=== PATIENT | male | born 1945 | race Caucasian/White ===

== ENCOUNTER 2020-01-23 16:56 | Inpatient (IN) | payer OTHER ==
[~2020-01-23] VITALS: Ht 182.9 cm; Wt 93.1 kg
[~2020-01-23 16:56] MED LIST: AMLODIPINE BESY10 MG PO; ASPIRIN325; COLACE100 MG PO; FLOMAX0.4 MG PO; HYDROCODON-ACE1 EAC7 PO; PRINIVIL20 MG PO; PROBIOTIC1 EAC1 PO; XARELTO15 MG PO
[2020-01-23 17:10] VITALS: BP 131/66
[2020-01-23 17:38] LABS: ABSOLUTE NEUTROPHILS 2.4 thou/uL (1.4-8.2); BASOPHILS 0.4 % (0.0-2.0); EOSINOPHILS 0.1 % (0.0-3.0); HEMATOCRIT 43.4 % (42.0-52.0); HEMOGLOBIN 14.5 gm/dL (14.0-18.0); LYMPHOCYTES 8.1 % (24.0-44.0); MCH 32.8 pg (26.0-34.0); MCHC 33.4 g/dL (28.0-37.0); MCV 98.1 fL (80.0-100.0); MONOCYTES 11.1 % (1.0-8.0); PLATELET COUNT 106 thou/uL (150-400); POLYS 80.3 % (36.0-66.0); RBC 4.42 mil/uL (4.50-6.00); RDW 14.2 % (10.5-14.5)
[2020-01-23 17:47] LABS: ANION GAP 13 mmol/L (7-16); BUN 20 mg/dL (7-18); CALCIUM 8.2 mg/dL (8.5-10.1); CHLORIDE 101 mmol/L (98-107); CO2 22 mmol/L (21-32); CREATININE 1.9 mg/dL (0.7-1.3); GLUCOSE 104 mg/dL (74-106); POTASSIUM 3.7 mmol/L (3.5-5.1); SODIUM 136 mmol/L (136-145)
[2020-01-23 17:56] LABS: ALBUMIN 3.3 g/dL (3.4-5.0); SGOT 78 U/L (15-37); SGPT 62 U/L (30-65); TOTAL BILIRUBIN 0.5 mg/dL (0.2-1.0); TOTAL PROTEIN 6.8 g/dL (6.4-8.2); TROPONIN-I <0.06 ng/mL (<0.06)
[2020-01-23 18:38] LABS: BE(vivo) -2.6 mmol/L (-2 to +3); HCO3 20.4 mmol/L (22.0-26.0); PCO2 30.9 mmHg (35.0-45.0); PO2 65.5 mmHg (80.0-100.0); pH 7.438 (7.360-7.450); sO2 93.8 % (92.0-98.0)
[2020-01-23] MEDS ORDERED: XARELTO10 MG PO (19:06)
[2020-01-23 19:19] LABS: URINE BLOOD NEGATIVE (Negative); URINE CLARITY CLEAR; URINE COLOR YELLOW; URINE GLUCOSE-RANDOM* NEGATIVE (Negative); URINE KETONES 2+ (Negative); URINE LEUKOCYTES-REFLEX NEGATIVE (Negative); URINE NITRITE-REFLEX NEGATIVE (Negative); URINE PROTEIN (DIPSTICK) 2+ (Negative); URINE SPECIFIC GRAVITY >= 1.030 (1.005-1.035)
[2020-01-23 19:20] LABS: ICTOTEST (BILI CONFIRMATORY) Negative (Negative); URINE BILIRUBIN NEGATIVE (Negative)
[2020-01-23 19:40] LABS: CRYSTALS None Seen /LPF (None Seen); HYALINE CASTS 0-3 Few /LPF (None Seen); SQUAMOUS None Seen /LPF (0-3); URINE RBC 0-2 Rare /HPF (0-2); URINE WBC-REFLEX 0-5 Rare /HPF (0-5)
[2020-01-23 19:41] LABS: BACTERIA-REFLEX 1-9 Few /HPF (None Seen)
[2020-01-23 20:30] VITALS: BP 122/75
[2020-01-23 20:55] VITALS: BP 140/80
[2020-01-23 21:10] VITALS: BP 142/81
[2020-01-24 04:12] VITALS: BP 140/85
[2020-01-24 06:17] LABS: MCHC 33.1 g/dL (28.0-37.0)
[2020-01-24 06:20] LABS: HEMATOCRIT 40.6 % (42.0-52.0); HEMOGLOBIN 13.4 gm/dL (14.0-18.0); MCH 32.9 pg (26.0-34.0); MCV 99.4 fL (80.0-100.0); RBC 4.09 mil/uL (4.50-6.00); RDW 13.8 % (10.5-14.5)
[2020-01-24 06:27] LABS: CHOLESTEROL 63 mg/dL (<200); HDL CHOLESTEROL 30 mg/dL (>40); LDL CHOLESTEROL 21 mg/dL (<100); TC:HDL 2.1 Ratio (Not establshd); TRIGLYCERIDE 61 mg/dL (<150); VLDL 12 mg/dL (<40)
[2020-01-24 06:34] LABS: WBC 1.8 thou/uL (4.0-11.0)
[2020-01-24 06:41] LABS: CREATININE 1.6 mg/dL (0.7-1.3); POTASSIUM 4.2 mmol/L (3.5-5.1)
[2020-01-24 06:56] LABS: SERUM ASSESSMENT Clear
[2020-01-24 08:00] VITALS: BP 168/90
--- NOTE | 2020-01-24 09:03 | EKG ---
[facility] [place] [address] ELECTROCARDIOGRAM REPORT Name: JADON HARGROVE Room #: 353-P ADM IN M.R.#: [id number] Admission: 01/23/20 Attend Phys: Edgardo Coley MD Discharge: Date of : 41 Report #: [id number] THIS REPORT FOR: cc: [place] - No family physician/PCP [place] - No family physician/PCP Sachin Ruvalcaba MD [facility] THIS REPORT FOR: //name// [facility] ED Test Date: 2020-01-23 Test Time: 17:12:13 Pat Name: JADON HARGROVE Department: Room: [facility] Gender: M Lgsw[facility] 1945 Requested By: Lakia Garcia Order Number: [id number] MD: Sachin Ruvalcaba Measurements Intervals [place] Rate: 102 P: 59 [place]: 134 QRS: -28 QRSD: 91 T: 61 QT: 339 QTc: 442 Interpretive Statements Sinus tachycardia Borderline left axis deviation Compared to ECG 08/20/2016 22:18:03 No significant change was found Electronically Signed On 01-24-2020 9:03:30 CDT by Sachin Ruvalcaba [email or web address] <ELECTRONICALLY SIGNED> By: Sachin Ruvalcaba MD, [facility] 01/24/20 0903 [id number] 171 Sachin Ruvalcaba MD, [facility] /EPI
[2020-01-24 11:23] VITALS: BP 140/90
[2020-01-24 15:20] VITALS: BP 151/87
[2020-01-24 19:24] VITALS: BP 120/78
[2020-01-25 04:53] VITALS: BP 113/55
[2020-01-25 06:11] LABS: ABSOLUTE NEUTROPHILS 4.9 thou/uL (1.4-8.2); BASOPHILS 0.1 % (0.0-2.0); EOSINOPHILS 0.1 % (0.0-3.0); HEMOGLOBIN 13.8 gm/dL (14.0-18.0); LYMPHOCYTES 7.2 % (24.0-44.0); MCH 33.2 pg (26.0-34.0); MCHC 33.6 g/dL (28.0-37.0); MONOCYTES 9.8 % (1.0-8.0); PLATELET COUNT 141 thou/uL (150-400); POLYS 82.8 % (36.0-66.0); RBC 4.14 mil/uL (4.50-6.00); RDW 14.3 % (10.5-14.5); WBC 5.9 thou/uL (4.0-11.0)
[2020-01-25 06:17] LABS: FIBRINOGEN 314.7 mg/dL (210-360); INR 1.1; PROTIME 11.3 Seconds (9.3-11.4)
[2020-01-25 06:30] LABS: CALCIUM 8.6 mg/dL (8.5-10.1); CREATININE 1.5 mg/dL (0.7-1.3); POTASSIUM 3.6 mmol/L (3.5-5.1); TOTAL BILIRUBIN 0.3 mg/dL (0.2-1.0); TOTAL PROTEIN 6.4 g/dL (6.4-8.2)
[2020-01-25 08:07] VITALS: BP 136/69
[2020-01-25 11:38] VITALS: BP 128/75
[2020-01-25 15:20] VITALS: BP 129/65
[2020-01-25 19:36] VITALS: BP 131/75
[2020-01-25 22:36] VITALS: BP 141/92; BP 144/102
[2020-01-26] VITALS (12 sets, daily range): BP systolic 124–160; BP diastolic 67–98
[2020-01-26 05:33] LABS: ABSOLUTE NEUTROPHILS 5.2 thou/uL (1.4-8.2); BASOPHILS 0.1 % (0.0-2.0); HEMOGLOBIN 13.4 gm/dL (14.0-18.0); LYMPHOCYTES 6.2 % (24.0-44.0); MCH 32.8 pg (26.0-34.0); MCHC 33.4 g/dL (28.0-37.0); MONOCYTES 7.3 % (1.0-8.0); PLATELET COUNT 167 thou/uL (150-400); POLYS 86.4 % (36.0-66.0); RBC 4.08 mil/uL (4.50-6.00); RDW 14.3 % (10.5-14.5)
[2020-01-26 08:19] LABS: CALCIUM 8.1 mg/dL (8.5-10.1); CREATININE 1.2 mg/dL (0.7-1.3); POTASSIUM 3.4 mmol/L (3.5-5.1)
[2020-01-26 09:34] LABS: BE(vivo) -2.5 mmol/L (-2 to +3); HCO3 20.1 mmol/L (22.0-26.0); PCO2 28.9 mmHg (35.0-45.0); PO2 68.6 mmHg (80.0-100.0); sO2 94.9 % (92.0-98.0)
[2020-01-26 17:29] LABS: BE(vivo) -3.5 mmol/L (-2 to +3); HCO3 19.3 mmol/L (22.0-26.0); PCO2 29.2 mmHg (35.0-45.0); PO2 59.8 mmHg (80.0-100.0); pH 7.439 (7.360-7.450); sO2 92.2 % (92.0-98.0)
[2020-01-27] VITALS (27 sets, daily range): BP systolic 131–180; BP diastolic 81–115
[2020-01-27 04:12] LABS: BE(vivo) -1.5 mmol/L (-2 to +3); HCO3 20.9 mmol/L (22.0-26.0); PCO2 29.7 mmHg (35.0-45.0); PO2 59.9 mmHg (80.0-100.0); pH 7.466 (7.360-7.450); sO2 92.7 % (92.0-98.0)
[2020-01-27 04:32] LABS: CALCIUM 8.2 mg/dL (8.5-10.1); CREATININE 1.1 mg/dL (0.7-1.3); POTASSIUM 3.3 mmol/L (3.5-5.1)
[2020-01-27 05:05] LABS: TSH 0.609 uIU/mL (0.358-3.740)
[2020-01-27 05:17] LABS: HEMATOCRIT 40.6 % (42.0-52.0); HEMOGLOBIN 13.7 gm/dL (14.0-18.0); MCH 32.9 pg (26.0-34.0); MCHC 33.7 g/dL (28.0-37.0); MCV 97.7 fL (80.0-100.0); RBC 4.15 mil/uL (4.50-6.00); RDW 14.2 % (10.5-14.5); WBC 4.8 thou/uL (4.0-11.0)
[2020-01-28] VITALS (46 sets, daily range): BP systolic 107–158; BP diastolic 69–119
[2020-01-28 06:17] LABS: CALCIUM 8.8 mg/dL (8.5-10.1); CREATININE 1.1 mg/dL (0.7-1.3); POTASSIUM 3.5 mmol/L (3.5-5.1)
[2020-01-29] VITALS (25 sets, daily range): BP systolic 122–159; BP diastolic 77–121
[2020-01-29 05:39] LABS: ALBUMIN 2.8 g/dL (3.4-5.0); DIRECT BILIRUBIN 0.1 mg/dL (<0.1-0.2); TOTAL BILIRUBIN 0.6 mg/dL (0.2-1.0); TOTAL PROTEIN 6.5 g/dL (6.4-8.2)
[2020-01-30] VITALS (19 sets, daily range): BP systolic 100–156; BP diastolic 65–86
[2020-01-30 08:23] LABS: CALCIUM 8.4 mg/dL (8.5-10.1); CREATININE 1.4 mg/dL (0.7-1.3); POTASSIUM 3.5 mmol/L (3.5-5.1)
[2020-01-31] VITALS (22 sets, daily range): BP systolic 101–143; BP diastolic 52–98
--- NOTE | 2020-01-31 03:59 | HC ---
[facility] [place] [address] CONSULTATION Name: JADON HARGROVE Room #: 240- ADM IN M.R.#: [id number] Admission: 01/23/20 Attend Phys: Kaz Moreno MD Discharge: Date of : 41 Report #: [id number] THIS REPORT FOR: cc: [place] - [place] family physician/PCP [place] - No family physician/PCP Julio Kerns MD ~ CC: Kaz MARTINO physician/PCP DATE OF SERVICE: 01/26/2020 HISTORY OF PRESENT ILLNESS: This is a 74-year-old male patient who was evaluated by me for abnormal CT scan of the head. This patient is a poor historian. His memory is not very good. Some of the history is from him and lot of the history is from the record. This patient was admitted with acute hypoxic respiratory failure secondary to COVID. He has a pretty eventful course while in the hospital. He has been noticed to be weak in a generalized fashion and when a CT scan was done that showed a large encephalomalacia. The patient says he never had any surgery on the head. 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 He does not tell me what kind of symptoms was associated with that. Therefore, it becomes very difficult to evaluate this patient further. Some of the records indicate that he has been weak for months. Now he tells me he is getting stronger. He does appear to clinically have a left facial palsy. 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 REVIEW OF SYSTEMS: Positive for COVID positive and he has a pretty significant and involved course during the hospitalization. He was hypoxic. He required supplemental oxygen. He does have a history of arthritis. He has a history of acoustic neuroma, which I suspect was removed, but he does not remember much about that. That was a relevant 14-point review of system I can get on him. PAST MEDICAL HISTORY: Positive for mini stroke according to him, but I am not sure what symptom he caused because he does not give any history. FAMILY HISTORY: Unavailable. SOCIAL HISTORY: He has a history of smoking. PHYSICAL EXAMINATION: Indicate that he is alert. He is responsive. He does have a reasonable speech, but his memory and fund of knowledge is very poor. He did not remember the month or the date for me. Cranial nerve examination: He does appear to have facial weakness. He does not know why he had that, but records indicate it was because of Del Rosario's palsy. He is weak in generalized fashion. He is weak in all 4 extremities to some extent. It is more so in the lower extremities than the upper extremities. He was able to do fairly well [facility] [address] [place] [address] CONSULTATION Name: JADON HARGROVE Room #: 240-P [facility] IN M.R.#: [id number] Admission: 01/23/20 Attend Phys: Kaz Moreno MD Discharge: Date of : 41 Report #: [id number] with the position sense in the lower extremities. Reflexes are tough to tell because he does not give a good effort and relaxes. I could not look at the fundus. He is still short of breath. His blood pressure is 150/83, respirations 20, pulse is 94, temperature is 97.5. LABORATORY DATA: His white count is 6. IMPRESSION: Pretty difficult to form in this patient. He has generalized weakness. I think the finding on the brain is incidental. His weakness appeared to be more prominent in the legs, but is present in generalized fashion. We will get an MRI done and I will follow up after the MRI and I will also discuss with you. Thank you very much for this referral and if you have any questions, please feel free to contact me. <ELECTRONICALLY SIGNED> By: Juloi Kerns MD 01/31/20 0359 [id number] Julio Kerns MD /nt
[2020-02-01] VITALS (22 sets, daily range): BP systolic 92–160; BP diastolic 61–115
[2020-02-02] VITALS (23 sets, daily range): BP systolic 99–137; BP diastolic 56–104
[2020-02-03] VITALS (17 sets, daily range): BP systolic 118–155; BP diastolic 67–95
[2020-02-03 04:47] LABS: CALCIUM 8.3 mg/dL (8.5-10.1); CREATININE 1.3 mg/dL (0.7-1.3); POTASSIUM 3.8 mmol/L (3.5-5.1)
[2020-02-03 04:51] LABS: HEMATOCRIT 39.7 % (42.0-52.0); MCHC 32.6 g/dL (28.0-37.0); MCV 98.3 fL (80.0-100.0); RBC 4.04 mil/uL (4.50-6.00); RDW 14.4 % (10.5-14.5); WBC 15.3 thou/uL (4.0-11.0)
[2020-02-03 08:10] LABS: BE(vivo) -0.1 mmol/L (-2 to +3); HCO3 22.9 mmol/L (22.0-26.0); PCO2 32.9 mmHg (35.0-45.0); sO2 90.3 % (92.0-98.0)
[2020-02-03 08:12] LABS: PO2 54.4 mmHg (80.0-100.0)
[2020-02-03 16:14] LABS: URINE BILIRUBIN NEGATIVE (Negative); URINE BLOOD NEGATIVE (Negative); URINE CLARITY CLOUDY; URINE COLOR YELLOW; URINE GLUCOSE-RANDOM* NEGATIVE (Negative); URINE KETONES NEGATIVE (Negative); URINE LEUKOCYTES-REFLEX 2+ (Negative); URINE NITRITE-REFLEX NEGATIVE (Negative); URINE PROTEIN (DIPSTICK) 1+ (Negative); URINE SPECIFIC GRAVITY 1.025 (1.005-1.035); URINE UROBILINOGEN 0.2 E.U./dl (0.2-1.0)
[2020-02-03 16:16] LABS: BACTERIA-REFLEX 1-9 Few /HPF (None Seen); CRYSTALS None Seen /LPF (None Seen); SQUAMOUS None Seen /LPF (0-3); URINE RBC None Seen /HPF (0-2); URINE WBC-REFLEX >25 Many /HPF (0-5)
[2020-02-03 21:05] LABS: BE(vivo) -3.8 mmol/L (-2 to +3); PCO2 48.4 mmHg (35.0-45.0); PO2 53.4 mmHg (80.0-100.0); pH 7.295 (7.360-7.450); sO2 83.9 % (92.0-98.0)
[2020-02-04] VITALS (34 sets, daily range): BP systolic 79–158; BP diastolic 46–80
[2020-02-04 08:19] LABS: HCO3 24.3 mmol/L (22.0-26.0); PCO2 42.8 mmHg (35.0-45.0); PO2 58.9 mmHg (80.0-100.0); pH 7.372 (7.360-7.450); sO2 89.8 % (92.0-98.0)
[2020-02-04 09:55] LABS: ABSOLUTE NEUTROPHILS 12.5 thou/uL (1.4-8.2); BASOPHILS 0.3 % (0.0-2.0); EOSINOPHILS 1.6 % (0.0-3.0); HEMOGLOBIN 12.4 gm/dL (14.0-18.0); LYMPHOCYTES 6.2 % (24.0-44.0); MCH 32.1 pg (26.0-34.0); MCHC 32.6 g/dL (28.0-37.0); MCV 98.5 fL (80.0-100.0); MONOCYTES 6.2 % (1.0-8.0); PLATELET COUNT 199 thou/uL (150-400); POLYS 85.7 % (36.0-66.0); RBC 3.86 mil/uL (4.50-6.00); RDW 14.6 % (10.5-14.5); WBC 14.6 thou/uL (4.0-11.0)
[2020-02-04 10:03] LABS: INR 1.1; PROTIME 11.2 Seconds (9.3-11.4)
[2020-02-04 10:08] LABS: FIBRINOGEN 866.2 mg/dL (210-360)
[2020-02-04 10:10] LABS: ALBUMIN 2.1 g/dL (3.4-5.0); CALCIUM 8.3 mg/dL (8.5-10.1); CREATININE 1.6 mg/dL (0.7-1.3); POTASSIUM 3.9 mmol/L (3.5-5.1); TOTAL PROTEIN 6.4 g/dL (6.4-8.2)
[2020-02-05] VITALS (36 sets, daily range): BP systolic 75–110; BP diastolic 48–66
[2020-02-05 04:32] LABS: BE(vivo) -3.2 mmol/L (-2 to +3); HCO3 23.8 mmol/L (22.0-26.0); PO2 57.3 mmHg (80.0-100.0); pH 7.287 (7.360-7.450); sO2 86.2 % (92.0-98.0)
[2020-02-06] VITALS (53 sets, daily range): BP systolic 83–230; BP diastolic 47–118
[2020-02-06 03:33] LABS: HCO3 23.3 mmol/L (22.0-26.0); PCO2 64.2 mmHg (35.0-45.0); PO2 62.5 mmHg (80.0-100.0); sO2 85.3 % (92.0-98.0)
[2020-02-06 03:35] LABS: pH 7.178 (7.360-7.450)
[2020-02-06 05:38] LABS: ABSOLUTE NEUTROPHILS 9.3 thou/uL (1.4-8.2); BASOPHILS 0.6 % (0.0-2.0); HEMATOCRIT 34.8 % (42.0-52.0); HEMOGLOBIN 11.4 gm/dL (14.0-18.0); LYMPHOCYTES 4.8 % (24.0-44.0); MCH 32.6 pg (26.0-34.0); MCHC 32.6 g/dL (28.0-37.0); MCV 99.9 fL (80.0-100.0); MONOCYTES 3.2 % (1.0-8.0); PLATELET COUNT 146 thou/uL (150-400); POLYS 90.4 % (36.0-66.0); RBC 3.48 mil/uL (4.50-6.00); RDW 14.5 % (10.5-14.5); WBC 10.3 thou/uL (4.0-11.0)
[2020-02-06 05:52] LABS: ALBUMIN 1.3 g/dL (3.4-5.0); CALCIUM 7.9 mg/dL (8.5-10.1); CREATININE 1.7 mg/dL (0.7-1.3); POTASSIUM 4.5 mmol/L (3.5-5.1); TOTAL BILIRUBIN 0.6 mg/dL (0.2-1.0); TOTAL PROTEIN 5.7 g/dL (6.4-8.2)
[2020-02-06 08:28] LABS: BE(vivo) -5.5 mmol/L (-2 to +3); HCO3 22.9 mmol/L (22.0-26.0); PCO2 58.1 mmHg (35.0-45.0); PO2 56.7 mmHg (80.0-100.0); sO2 82.9 % (92.0-98.0)
[2020-02-06 08:29] LABS: pH 7.214 (7.360-7.450)
[2020-02-06 11:43] LABS: BE(vivo) -6.9 mmol/L (-2 to +3); HCO3 20.9 mmol/L (22.0-26.0); sO2 85.7 % (92.0-98.0)
[2020-02-06 11:45] LABS: pH 7.222 (7.360-7.450)
[2020-02-07] VITALS (97 sets, daily range): BP systolic 87–153; BP diastolic 45–85
[2020-02-07 04:34] LABS: BE(vivo) -6.4 mmol/L (-2 to +3); HCO3 21.4 mmol/L (22.0-26.0); PO2 69.2 mmHg (80.0-100.0); pH 7.224 (7.360-7.450); sO2 90.2 % (92.0-98.0)
[2020-02-07 05:39] LABS: ABSOLUTE NEUTROPHILS 7.7 thou/uL (1.4-8.2); BASOPHILS 0.1 % (0.0-2.0); HEMATOCRIT 32.3 % (42.0-52.0); HEMOGLOBIN 10.5 gm/dL (14.0-18.0); LYMPHOCYTES 2.2 % (24.0-44.0); MCH 32.1 pg (26.0-34.0); MCHC 32.6 g/dL (28.0-37.0); MCV 98.8 fL (80.0-100.0); MONOCYTES 1.9 % (1.0-8.0); PLATELET COUNT 126 thou/uL (150-400); POLYS 95.8 % (36.0-66.0); RBC 3.27 mil/uL (4.50-6.00); RDW 14.3 % (10.5-14.5)
[2020-02-07 06:26] LABS: ALBUMIN 1.3 g/dL (3.4-5.0); CALCIUM 7.9 mg/dL (8.5-10.1); CREATININE 2.1 mg/dL (0.7-1.3); MAGNESIUM 2.5 mg/dL (1.8-2.4); POTASSIUM 4.5 mmol/L (3.5-5.1); TOTAL BILIRUBIN 0.3 mg/dL (0.2-1.0); TOTAL PROTEIN 5.6 g/dL (6.4-8.2)
[2020-02-07 20:33] LABS: HCO3 25.5 mmol/L (22.0-26.0); PCO2 62.2 mmHg (35.0-45.0); PO2 76.1 mmHg (80.0-100.0); sO2 92.4 % (92.0-98.0)
[2020-02-07 20:34] LABS: pH 7.231 (7.360-7.450)
[2020-02-08] VITALS (106 sets, daily range): BP systolic 93–203; BP diastolic 54–119
[2020-02-08 04:11] LABS: BE(vivo) 0.4 mmol/L (-2 to +3); HCO3 28.5 mmol/L (22.0-26.0); PCO2 64.4 mmHg (35.0-45.0); PO2 88.8 mmHg (80.0-100.0); sO2 95.3 % (92.0-98.0)
[2020-02-08 04:12] LABS: pH 7.264 (7.360-7.450)
[2020-02-08 06:53] LABS: ABSOLUTE NEUTROPHILS 7.7 thou/uL (1.4-8.2); BASOPHILS 0.2 % (0.0-2.0); HEMATOCRIT 30.3 % (42.0-52.0); HEMOGLOBIN 10.1 gm/dL (14.0-18.0); LYMPHOCYTES 4.2 % (24.0-44.0); MCH 32.8 pg (26.0-34.0); MCHC 33.5 g/dL (28.0-37.0); MONOCYTES 6.9 % (1.0-8.0); PLATELET COUNT 152 thou/uL (150-400); POLYS 88.7 % (36.0-66.0); RBC 3.09 mil/uL (4.50-6.00); RDW 14.4 % (10.5-14.5); WBC 8.7 thou/uL (4.0-11.0)
[2020-02-08 07:08] LABS: ALBUMIN 1.8 g/dL (3.4-5.0); CALCIUM 7.9 mg/dL (8.5-10.1); CREATININE 2.7 mg/dL (0.7-1.3); POTASSIUM 4.5 mmol/L (3.5-5.1); TOTAL BILIRUBIN 0.3 mg/dL (0.2-1.0); TOTAL PROTEIN 5.6 g/dL (6.4-8.2)
[2020-02-08 20:06] LABS: BE(vivo) 1.6 mmol/L (-2 to +3); PCO2 57.9 mmHg (35.0-45.0); PO2 80.6 mmHg (80.0-100.0); sO2 94.8 % (92.0-98.0)
[2020-02-08 20:12] LABS: pH 7.317 (7.360-7.450)
[2020-02-08 20:31] LABS: ABSOLUTE NEUTROPHILS 9.1 thou/uL (1.4-8.2); BASOPHILS 0.7 % (0.0-2.0); HEMATOCRIT 31.7 % (42.0-52.0); HEMOGLOBIN 10.9 gm/dL (14.0-18.0); LYMPHOCYTES 2.1 % (24.0-44.0); MCH 33.2 pg (26.0-34.0); MCHC 34.4 g/dL (28.0-37.0); MCV 96.4 fL (80.0-100.0); MONOCYTES 6.5 % (1.0-8.0); PLATELET COUNT 157 thou/uL (150-400); POLYS 90.7 % (36.0-66.0); RBC 3.29 mil/uL (4.50-6.00); RDW 14.5 % (10.5-14.5)
[2020-02-08 20:46] LABS: ALBUMIN 1.8 g/dL (3.4-5.0); CREATININE 2.6 mg/dL (0.7-1.3); POTASSIUM 4.5 mmol/L (3.5-5.1); TOTAL BILIRUBIN 0.3 mg/dL (0.2-1.0); TOTAL PROTEIN 5.8 g/dL (6.4-8.2)
[2020-02-09] VITALS (96 sets, daily range): BP systolic 85–197; BP diastolic 36–105
[2020-02-09 09:01] LABS: BE(vivo) 1.3 mmol/L (-2 to +3); PCO2 62.3 mmHg (35.0-45.0); PO2 76.2 mmHg (80.0-100.0); sO2 93.3 % (92.0-98.0)
[2020-02-09 09:02] LABS: pH 7.286 (7.360-7.450)
[2020-02-09 10:49] LABS: ABSOLUTE NEUTROPHILS 6.2 thou/uL (1.4-8.2); BASOPHILS 0.2 % (0.0-2.0); EOSINOPHILS 0.1 % (0.0-3.0); HEMATOCRIT 31.8 % (42.0-52.0); HEMOGLOBIN 10.6 gm/dL (14.0-18.0); LYMPHOCYTES 3.1 % (24.0-44.0); MCH 32.6 pg (26.0-34.0); MCHC 33.4 g/dL (28.0-37.0); MCV 97.8 fL (80.0-100.0); MONOCYTES 6.3 % (1.0-8.0); PLATELET COUNT 140 thou/uL (150-400); POLYS 90.3 % (36.0-66.0); RBC 3.25 mil/uL (4.50-6.00); RDW 14.6 % (10.5-14.5); WBC 6.9 thou/uL (4.0-11.0)
[2020-02-09 11:11] LABS: ALBUMIN 1.8 g/dL (3.4-5.0); CALCIUM 8.1 mg/dL (8.5-10.1); CREATININE 2.6 mg/dL (0.7-1.3); POTASSIUM 4.8 mmol/L (3.5-5.1); TOTAL BILIRUBIN 0.3 mg/dL (0.2-1.0); TOTAL PROTEIN 5.7 g/dL (6.4-8.2)
[2020-02-09 20:30] LABS: ABSOLUTE NEUTROPHILS 13.1 thou/uL (1.4-8.2); BASOPHILS 0.3 % (0.0-2.0); HEMATOCRIT 38.3 % (42.0-52.0); HEMOGLOBIN 12.4 gm/dL (14.0-18.0); LYMPHOCYTES 1.6 % (24.0-44.0); MCHC 32.3 g/dL (28.0-37.0); MCV 99.1 fL (80.0-100.0); PLATELET COUNT 186 thou/uL (150-400); POLYS 90.1 % (36.0-66.0); RBC 3.86 mil/uL (4.50-6.00); RDW 14.4 % (10.5-14.5); WBC 14.5 thou/uL (4.0-11.0)
[2020-02-09 20:44] LABS: BE(vivo) -1.4 mmol/L (-2 to +3); HCO3 29.2 mmol/L (22.0-26.0); PO2 67.3 mmHg (80.0-100.0); sO2 87.3 % (92.0-98.0)
[2020-02-09 20:46] LABS: PCO2 80.9 mmHg (35.0-45.0); pH 7.175 (7.360-7.450)
[2020-02-09 20:56] LABS: CALCIUM 8.4 mg/dL (8.5-10.1); CREATININE 2.4 mg/dL (0.7-1.3); POTASSIUM 5.5 mmol/L (3.5-5.1); TOTAL BILIRUBIN 0.3 mg/dL (0.2-1.0); TOTAL PROTEIN 6.4 g/dL (6.4-8.2)
[2020-02-09 20:58] LABS: ANISOCYTOSIS 1+; POLYCHROMASIA OCCASIONAL
[2020-02-10] VITALS (93 sets, daily range): BP systolic 100–180; BP diastolic 52–138
[2020-02-10 09:28] LABS: BE(vivo) 7.3 mmol/L (-2 to +3); HCO3 35.3 mmol/L (22.0-26.0); PO2 56.2 mmHg (80.0-100.0); pH 7.332 (7.360-7.450); sO2 86.2 % (92.0-98.0)
[2020-02-10 09:30] LABS: PCO2 68.1 mmHg (35.0-45.0)
[2020-02-10 10:23] LABS: HEMATOCRIT 34.1 % (42.0-52.0); HEMOGLOBIN 11.4 gm/dL (14.0-18.0); MCH 32.5 pg (26.0-34.0); MCHC 33.4 g/dL (28.0-37.0); MCV 97.4 fL (80.0-100.0); RBC 3.51 mil/uL (4.50-6.00); RDW 14.6 % (10.5-14.5); WBC 10.4 thou/uL (4.0-11.0)
[2020-02-10 10:45] LABS: ALBUMIN 1.8 g/dL (3.4-5.0); CALCIUM 8.3 mg/dL (8.5-10.1); CREATININE 2.4 mg/dL (0.7-1.3); POTASSIUM 5.4 mmol/L (3.5-5.1); TOTAL BILIRUBIN 0.3 mg/dL (0.2-1.0); TOTAL PROTEIN 5.7 g/dL (6.4-8.2)
[2020-02-10 10:55] LABS: ABSOLUTE NEUTROPHILS 9.5 thou/uL (1.4-8.2); ANISOCYTOSIS 1+; METAMYELOCYTES 1 %; OVALOCYTES FEW; PLATELET COUNT 108 thou/uL (150-400)
[2020-02-11] VITALS (26 sets, daily range): BP systolic 99–152; BP diastolic 60–79
[2020-02-11 04:57] LABS: HEMATOCRIT 35.4 % (42.0-52.0); HEMOGLOBIN 11.2 gm/dL (14.0-18.0); MCH 31.8 pg (26.0-34.0); MCHC 31.7 g/dL (28.0-37.0); MCV 100.1 fL (80.0-100.0); RBC 3.54 mil/uL (4.50-6.00); WBC 11.8 thou/uL (4.0-11.0)
[2020-02-11 05:10] LABS: ALBUMIN 1.9 g/dL (3.4-5.0); CALCIUM 8.5 mg/dL (8.5-10.1); CREATININE 2.3 mg/dL (0.7-1.3); POTASSIUM 5.7 mmol/L (3.5-5.1); TOTAL BILIRUBIN 0.3 mg/dL (0.2-1.0); TOTAL PROTEIN 5.9 g/dL (6.4-8.2)
== END 2020-02-11 15:25 | DRG 870 ==
LOC: ER 16:56 → EROBS 20:27 → 3W 20:27 → ICU 01-26 15:59
PROVIDERS: Internal Medicine; Internal Medicine Pulmonary Disease; Nurse Practitioner Family; Pediatrics; Physician Assistant; Psychiatry & Neurology Neuromuscular Medicine; Specialist; ADMIT Hospitalist; ATTEND Hospitalist
PROC: XW13325 Transfusion of Convalescent Plasma (Nonautologous) into Peripheral Vein, Percutaneous Approach, New Technology Group 5 (ICD-10-PCS; 2020-01-25)
PROC: XW033E5 Introduction of Remdesivir Anti-infective into Peripheral Vein, Percutaneous Approach, New Technology Group 5 (ICD-10-PCS; 2020-01-25)
PROC: XW033E5 Introduction of Remdesivir Anti-infective into Peripheral Vein, Percutaneous Approach, New Technology Group 5 (ICD-10-PCS; 2020-01-26)
PROC: 5A09357 Assistance with Respiratory Ventilation, Less than 24 Consecutive Hours, Continuous Positive Airway Pressure (ICD-10-PCS; 2020-01-26)
PROC: 5A09357 Assistance with Respiratory Ventilation, Less than 24 Consecutive Hours, Continuous Positive Airway Pressure (ICD-10-PCS; 2020-01-27)
PROC: 5A09357 Assistance with Respiratory Ventilation, Less than 24 Consecutive Hours, Continuous Positive Airway Pressure (ICD-10-PCS; 2020-01-28)
PROC: 5A09357 Assistance with Respiratory Ventilation, Less than 24 Consecutive Hours, Continuous Positive Airway Pressure (ICD-10-PCS; 2020-01-29)
PROC: 5A1955Z Respiratory Ventilation, Greater than 96 Consecutive Hours (ICD-10-PCS; principal; 2020-02-03)
PROC: 0BH18EZ Insertion of Endotracheal Airway into Trachea, Via Natural or Artificial Opening Endoscopic (ICD-10-PCS; principal; 2020-02-03)
PROC: 5A09357 Assistance with Respiratory Ventilation, Less than 24 Consecutive Hours, Continuous Positive Airway Pressure (ICD-10-PCS; principal; 2020-02-03)
PROC: 02HV33Z Insertion of Infusion Device into Superior Vena Cava, Percutaneous Approach (ICD-10-PCS; 2020-02-04)
DX: A41.89 Other specified sepsis (principal); U07.1 COVID-19; J96.01 Acute respiratory failure with hypoxia; J12.89 Other viral pneumonia; G92 Toxic encephalopathy; J96.02 Acute respiratory failure with hypercapnia; K50.90 Crohn's disease, unspecified, without complications; N17.9 Acute kidney failure, unspecified; E87.0 Hyperosmolality and hypernatremia; D68.59 Other primary thrombophilia; R57.9 Shock, unspecified; E87.2 Acidosis; R65.20 Severe sepsis without septic shock; I10 Essential (primary) hypertension; M19.90 Unspecified osteoarthritis, unspecified site; G51.0 Bell's palsy; E87.6 Hypokalemia; G93.89 Other specified disorders of brain; D64.9 Anemia, unspecified; R74.0 Nonspecific elevation of levels of transaminase and lactic acid dehydrogenase [LDH]; Z66 Do not resuscitate; J84.10 Pulmonary fibrosis, unspecified; J47.9 Bronchiectasis, uncomplicated; D69.6 Thrombocytopenia, unspecified; D70.9 Neutropenia, unspecified; F17.210 Nicotine dependence, cigarettes, uncomplicated; Z86.718 Personal history of other venous thrombosis and embolism; Z79.899 Other long term (current) drug therapy; Z86.711 Personal history of pulmonary embolism
CPT/HCPCS: 10203; 10879